=== PATIENT | male | born 1990 | race Hispanic/Latino ===

== ENCOUNTER 2024-06-25 10:35 | Observation (INO) | payer OTHER ==
[~2024-06-25] VITALS: Ht 167.6 cm; Wt 101.2 kg
[2024-06-25 11:00] LABS: BASOPHILS # (AUTO) 0.05 K/uL (0.00-0.20); BASOPHILS % (AUTO) 0.6 % (0.0-5.0); EOSINOPHILS # (AUTO) 0.16 K/uL (0.00-0.70); EOSINOPHILS % (AUTO) 2.1 % (0.0-8.0); HEMATOCRIT 48.1 % (42-54); IMMATURE GRANULOCYTE ABSOLUTE 0.03 K/uL (0-1); LYMPHOCYTES % (AUTO) 26.1 % (21.0-51.0); MEAN CORPUSCULAR HEMOGLOBIN 27.7 pg (27.0-33.0); MEAN CORPUSCULAR HGB CONC 32.6 g/dL (32.0-36.0); MEAN CORPUSCULAR VOLUME 84.8 fL (79-99); MONOCYTES # (AUTO) 0.5 K/uL (0.1-1.0); MONOCYTES % (AUTO) 6.9 % (3.0-13.0); NEUTROPHILS # (AUTO) 4.9 K/uL (1.8-7.7); NEUTROPHILS % (AUTO) 63.9 % (40.0-77.0); PLATELET COUNT (AUTO) 233 K/uL (130-400); RED BLOOD CELL COUNT(AUTO) 5.67 MIL/uL (4.50-6.20); RED CELL DISTRIBUTION WIDTH 12.9 % (11.0-15.5); WHITE BLOOD COUNT (AUTO) 7.7 K/uL (4.8-10.8)
--- NOTE | 2024-06-25 11:03 | ERN ---
General Chief Complaint: Syncope Stated Complaint: SYNCOPE Time Seen by MD: 10:36 Time Seen by Midlevel: 10:36 Source: patient History of Present Illness Initial Comments Patient is a 33-year-old male with a past medical history of a TBI diagnosed back in 2010 presenting via EMS for evaluation following a syncopal episode. Patient states that a proximally two in the morning he was walking to his restroom when he became dizzy in the next thing he remembers was waking up on the floor. He is unsure how long he was on the floor for but states that when he entered the restroom it was approximately two in the morning and when he left it was three in the morning. [facility] he report to the [facility] for further evaluation. On arrival he does report a headache that is rated 5/10 along with heaviness in his eyes. He specifically denies any vision changes, nausea, vomiting, chest pain, shortness for breath, or any other symptoms at this time. He states the only medications he was supposed to be taking his fluoxetine but he last took it last week. Patient states he does not take that medication very consistently. Allergies: Coded Allergies: No Known Drug Allergies (Unverified Allergy, Unknown, 06/25/24) Past Medical History Past Medical History: Anxiety, Other Medical History Other: TRAUMATIC BRAIN INJURY, INSOMNIA, ALLERGIC RHINITIS, HERNIA, PTSD Past Surgical History: Appendectomy, Other Surgical History Other: HERNIA ROS Dictation CONSTITUTIONAL: Negative except for HPI HEAD/FACE: Negative except for HPI EENT: Negative except for HPI RESPIRATORY: Negative except for HPI GASTROINTESTINAL/ABDOMINAL: Negative except for HPI GENITOURINARY: Negative except for HPI MUSCULOSKELETAL: Negative except for HPI INTEGUMENTARY: Negative except for HPI NEUROLOGICAL/PSYCH: Negative except for HPI HEMATOLOGIC/LYMPHATIC: Negative except for HPI All Systems Negative, Except as noted above. 13 point review of systems assessed and all negative except for above. Physical Exam Physical Exam Dictation Vital Signs reviewed General Appearance: Alert, oriented x 3, no acute distress, well developed, nourished. Head and Face: non-traumatic. Eyes: PERRL, pink conjunctivas, eyelid no trauma, anterior chamber with arcus senilis. Ears: Pinnas intact and no signs of trauma or erythema ear canals clear and no discharge TM no erythema Nose: No discharge, no bleeding. Oropharynx: Mouth normal, tongue pink, pharynx clear,no erythema, tonsils no exudates, no abscesses noted, mucous membrane moist Neck: Supple, non-tender, no thyromegaly, no masses, no JVD, no bruits Breast:Deferred Chest:No tenderness, no crepitus, no paradoxical movement, no retractions Lungs:Clear, well-ventilated, symmetric, no rales, no wheezing, no rhonchi, no stridor, good breath sounds bilaterally Heart: Regular rate, regular rhythm, no murmur, no gallops Vascular: no peripheral edema, Abdomen: Soft, positive bowel sounds, nondistended, no guarding, nontender, no rebound, no masses no hepatomegaly, no splenomegaly, no Mar's sign, no hernias. Rectal: Deferred Genital: Deferred Neurological: Normal speech, motor function intact, sensory function intact Musculoskeletal: Neck nontender, full range of motion, back nontender, full range of motion, Extremities: nontender, full range of motion Skin: Color pink, dry, no turgor, no rash, no lacerations, no abrasions, no contusions. Lymphatic: Deferred Results Laboratory and Microbiology Lab and Micro Result Laboratory Tests Test 06/25/24 10:54 06/25/24 11:00 White Blood Count 7.7 K/uL (4.8-10.8) Red Blood Count 5.67 MIL/uL (4.50-6.20) Hemoglobin 15.7 g/dL (14.0-18.0) Hematocrit 48.1 % (42-54) Mean Corpuscular Volume 84.8 fL (79-99) Mean Corpuscular Hemoglobin 27.7 pg (27.0-33.0) Mean Corpuscular Hemoglobin Concent 32.6 g/dL (32.0-36.0) Red Cell Distribution Width 12.9 % (11.0-15.5) Platelet Count 233 K/uL (130-400) Mean Platelet Volume 10.1 fL (7.5-10.5) Immature Granulocyte % (Auto) 0.4 % (0-1) Neutrophils (%) (Auto) 63.9 % (40.0-77.0) Lymphocytes (%) (Auto) 26.1 % (21.0-51.0) Monocytes (%) (Auto) 6.9 % (3.0-13.0) Eosinophils (%) (Auto) 2.1 % (0.0-8.0) Basophils (%) (Auto) 0.6 % (0.0-5.0) Neutrophils # (Auto) 4.9 K/uL (1.8-7.7) Lymphocytes # (Auto) 2.0 K/uL (1.0-4.8) Monocytes # (Auto) 0.5 K/uL (0.1-1.0) Eosinophils # (Auto) 0.16 K/uL (0.00-0.70) Basophils # (Auto) 0.05 K/uL (0.00-0.20) Absolute Immature Granulocyte (auto 0.03 K/uL (0-1) Nucleated Red Blood Cells 0.0 % (0.0-0.19) Sodium Level 140 mmol/L (136-145) Potassium Level 4.3 mmol/L (3.5-5.1) Chloride Level 105 mmol/L (101-111) Carbon Dioxide Level 29 mmol/L (21-32) Blood Urea Nitrogen 13 mg/dL (7-18) Creatinine 1.1 mg/dL (0.5-1.3) Glomerular Filtration Rate Calc 90 mL/min (>90) Random Glucose 103 mg/dL (70-105) Total Calcium 9.3 mg/dL (8.5-10.1) Total Creatine Kinase 193 U/L (21-232) Troponin I High Sensitivity < 4 ng/L (4-75) L Urine Color LIGHT-YELLOW (YELLOW) Urine Appearance CLEAR (CLEAR) Urine pH 5.5 (5.0-8.0) Urine Specific [place] 1.024 (1.001-1.031) Urine Protein NEGATIVE mg/dL (NEGATIVE) Urine Glucose (UA) NEGATIVE mg/dL (NEGATIVE) Urine Ketones NEGATIVE mg/dL (NEGATIVE) Urine Occult Blood NEGATIVE (NEGATIVE) Urine Nitrate NEGATIVE (NEGATIVE) Urine Bilirubin NEGATIVE mg/dL (NEGATIVE) Urine Urobilinogen 0.2 mg/dL (0.2-1.0) Urine Leukocyte Esterase NEGATIVE Dianelys/uL Urine Opiates Screen NEGATIVE (NEGATIVE) Urine Barbiturates Screen NEGATIVE (NEGATIVE) Urine Phencyclidine Screen NEGATIVE (NEGATIVE) Urine Amphetamines Screen NEGATIVE (NEGATIVE) Urine Benzodiazepines Screen NEGATIVE (NEGATIVE) Urine Cocaine Screen NEGATIVE (NEGATIVE) Urine Marijuana (THC) Screen NEGATIVE (NEGATIVE) Labs Reviewed?: Yes MDM MDM: Patient is a 33-year-old male with a past medical history of a TBI diagnosed back in 2010 presenting via EMS for evaluation following a syncopal episode. Patient states that a proximally two in the morning he was walking to his restroom when he became dizzy in the next thing he remembers was waking up on the floor. He is unsure how long he was on the floor for but states that when he entered the restroom it was approximately two in the morning and when he left it was three in the morning. He reported to the [facility] office today who recommended he report to the ER for further evaluation. On arrival he does report a headache that is rated 5/10 along with heaviness in his eyes. He specifically denies any vision changes, nausea, vomiting, chest pain, shortness for breath, or any other symptoms at this time. He states the only medications he was supposed to be taking his fluoxetine but he last took it last week. Patient states he does not take that medication very consistently. On physical examination patient is alert and oriented x4. He has a GCS of 15. He was reporting a headache that is rated 5/10. His CBC and chemistries are unremarkable. His urinalysis not show any evidence of infection. His urine drug screen is negative. His CT scan of the head reveals diffuse prominence of the lateral ventricle. This may be a nonspecific finding and may be congenital however this could represent early hydrocephalus. Given his episode of dizziness earlier today patient was admitted to the hospital for an MRI of the brain. Case was discussed with the hospitalist on-call who agrees to admit the patient. Dr Nichols, neurologist, was consulted in the ED. He recommends getting an MRI first and then the hospitalist can re-consult if there are any abno rmalities. Differential diagnosis: Intracranial bleed, electrolyte abnormality, dehydration Rationale: Tests considered and ordered secondary to shared decision making include: Previous outside records reviewed: Old ER visits. Risk of complication and/or morbidity or mortality of patient management: None Medications-Per medication reconciliation Need for hospitalization: Patient does meet criteria for hospitalization. Need for emergency major/minor surgery: No There are no social concerns with this patient. Prescription drug management Prescriptions will include symptomatic care Patient's prior external medical records from other ER visits were reviewed by me as indicated. Prior testing and results from previous visits were reviewed. Prior tests were taken into account with medical decision making and resource utilization, independent historian/historians were used to obtain complete medical history. I independently interpreted the test that were performed, results were reviewed by me and considered findings on radiology if ordered. Medical management and examination interpretation discussions were had by me with other qualified healthcare professionals as indicated for the patient's care. ED Course Orders Procedure Category Date Status Time Cbc With Differential LAB 06/25/24 Complete 10:39 Basic Metabolic Panel LAB 06/25/24 Complete 10:39 Creatine Kinase, Total LAB 06/25/24 Complete 10:39 Urinalysis Profile LAB 06/25/24 Complete 10:39 Drug Screen Urine LAB 06/25/24 Complete 10:39 Troponin I High LAB 06/25/24 Complete Sensitivity 10:39 Ct Head/Brain W/O CT 06/25/24 Resulted Contrast 10:39 Neurology Consult CONPHYSVC 06/25/24 Transmitted 13:20 Mr Brain Wo Con MRI 06/25/24 Resulted 13:20 Edm Admit Bridge Order ADM 06/25/24 Transmitted 13:20 Alcohol, Blood LAB 06/25/24 Complete 13:36 Orthostatic Vital CPOE 06/25/24 Transmitted Signs 13:36 Echo 2-D Complete ECHO 06/25/24 Logged 13:36 Us Carotid Duplex US 06/25/24 Resulted 13:36 Initiate JULIANNA 06/25/24 In Process Hyperglycemia Protoco 14:42 Insulin Regular, PHA 06/25/24 In Process Human 3ml (Humulin R 16:30 Initiate Hypoglycemia JULIANNA 06/25/24 In Process Protocol 14:42 Dextrose 50%-Water PHA 06/25/24 In Process (D50w) 15:00 Glucagon 1mg Kit PHA 06/25/24 In Process (Glucagon 1mg Kit) 15:00 Initiate Hypokalemia CPOE 06/25/24 Transmitted Po Half 14:42 Potassium Chloride PHA 06/25/24 In Process 10meq/100ml ([place] 15:00 Potassium Chl 10% PHA 06/25/24 In Process Elixir 20meq (Kcl 10% 15:00 Potassium Chloride PHA 06/25/24 In Process 20meq Er (K-Dur/Klor- 15:00 Notify Physician If CPOE 06/25/24 Transmitted There Is 14:42 Notify Md On The Next CPOE 06/25/24 Transmitted 14:42 Notify Md On The CPOE 06/25/24 Transmitted Next(Cont.) 14:42 Magnesium 2gm Premix PHA 06/25/24 In Process 50ml (Magnesium 2gm 15:00 Cbc With Differential LAB 06/26/24 Complete 04:00 B-Type Natriuretic LAB 06/26/24 In Process Peptide 04:00 Ammonia LAB 06/26/24 In Process 04:00 Hemoglobin A1c LAB 06/26/24 Complete 04:00 Lactic Acid LAB 06/26/24 In Process 04:00 Keppra LAB 06/26/24 In Process (Levetiracetam) Level 04:00 Procalcitonin LAB 06/26/24 In Process 04:00 Vital Signs(Adult CPOE 06/25/24 Transmitted Hospitalist) 14:42 Daily Weights CPOE 06/25/24 Transmitted 14:42 I&O Q Shift CPOE 06/25/24 Transmitted 14:42 Fever: Blood Cx X 2 CPOE 06/25/24 Transmitted 14:42 Diphenhydramine Hcl PHA 06/25/24 In Process (Benadryl Inj) 15:00 Acetaminophen 325 Tab PHA 06/25/24 In Process (Tylenol 325mg Tab 15:00 Acetaminophen 325 Tab PHA 06/25/24 Complete (Tylenol 325mg Tab 15:00 Ondansetron 4mg Inj PHA 06/25/24 In Process (Zofran 4mg Inj) 15:00 Zolpidem Tartrate 5 PHA 06/25/24 In Process Mg Tab (Ambien) 15:00 Mag/Alum/Simeth 30ml PHA 06/25/24 In Process (Maalox Plus 30ml) 15:00 Lactulose 20 Gm/30 Ml PHA 06/25/24 In Process Udcup (Constulose 15:00 Nitroglycerin 0.4mg PHA 06/25/24 In Process Sl Tab (Nitrostat) 15:00 Guaifenesin-Dm PHA 06/25/24 In Process 200/20mg 10ml 15:00 Famotidine 20mg Vial PHA 06/25/24 Complete (Pepcid 20mg Vial) 15:00 Nurse To Enter Home CPOE 06/25/24 Transmitted Medication 14:42 Admit Orders ADM 06/25/24 Transmitted 14:42 Activity: Ad Onelia CPOE 06/25/24 Transmitted 14:42 Heparin 5,000 Unit PHA 06/25/24 In Process Vial (Heparin 5,000 U 21:00 Acetaminophen 325 Tab PHA 06/25/24 In Process (Tylenol 325mg Tab 15:00 Ketorolac PHA 06/25/24 In Process Tromethamine 15mg/Ml 15:00 Pt Eval Request PT 06/25/24 Transmitted 14:42 Hydralazine 20mg Inj PHA 06/25/24 In Process (Apresoline 20mg In 15:00 Famotidine 20mg Vial PHA 06/25/24 In Process (Pepcid 20mg Vial) 21:00 Vital Signs Date Time Temp Pulse Resp B/P (MAP) Pulse Ox O2 Delivery O2 Flow Rate FiO2 06/25/24 10:37 98.4 68 16 130/92 99 Room Air* 0 21 06/25/24 10:37 98.4 68 16 130/92 99 Room Air [place] [address] [id number] IMAGING REPORT Signed PATIENT: WANG JOSE MR#: [id number] : 1990 SEX: M AGE: 33 LOCATION: [facility] ORDER 1040 STATUS: REG ER REPORT#: [id number] SERVICE 1039 REASON: syncope/head injury ORDERING PHYSICIAN: BRYN AC PROCEDURE: HEAD WO - CT HEAD/BRAIN W/O CONTRAST Exam: NONCONTRAST CT BRAIN REASON: syncope/head injury. COMPARISON: None. TECHNIQUE: Images are obtained from vertex to the skull base. The exam was performed without IV contrast. FINDINGS: There is normal appearing brain parenchyma. There are no focal mass lesions. There is is no evidence of intracranial hemorrhage or acute stroke. Ventricles appear diffusely prominent. There is loss of the frontal lobe angles on the coronal view. Third and fourth ventricles appear more normal in size. There is no evidence of transependymal resumption. Sulci and basilar cisterns appear unremarkable. Posterior fossa and brainstem structures are unremarkable. Paranasal sinuses and remaining extracranial soft tissues appear normal as well. IMPRESSION: 1. Diffuse prominence of the lateral ventricles, nonspecific finding, this may be congenital but could also represent to early hydrocephalus 2. Otherwise unremarkable exam, no intracranial hemorrhage, no focal parenchymal lesion identified. CT was performed with one or more following dose reduction techniques: automated exposure control, adjustment of the mA and kv according to patient's size, or use of a iterative reconstruction technique. DICTATED BY: FRANK ABDUL MD DATE: 06/25/241217 ELECTRONICALLY SIGNED BY: FRANK ABDUL MD DATE: 06/25/24 1222 DX & DISP Disposition: Inpatient Decision to Admit Date: Jun 25, 2024 Decision to Admit Time: 13:23 Departure Impression: Primary Impression: Abnormal CT of brain Additional Impression: Syncope Condition: Stable I have reviewed the case, and I agree with, Diagnosis and Plan I performed the substantive portion of the visit. I have reviewed and personally made and approve the management plan that is documented in the note by myself or the CLAY. I acknowledge for responsibility for the patient's management plan. BRYN AC Jun 25, 2024 11:03 RENETTA MARIN DO Jun 26, 2024 07:22
[2024-06-25 11:09] LABS: CREATININE 1.1 mg/dL (0.5-1.3); POTASSIUM 4.3 mmol/L (3.5-5.1)
[2024-06-25 11:37] LABS: AMPHET/METH SCREEN,URINE NEGATIVE (NEGATIVE); BARBITURATE SCREEN, URINE NEGATIVE (NEGATIVE); BENZODIAZEPINES SCREEN,URINE NEGATIVE (NEGATIVE); CANNABINOID SCREEN,URINE NEGATIVE (NEGATIVE); COCAINE SCREEN,URINE NEGATIVE (NEGATIVE); OPIATE SCREEN,URINE NEGATIVE (NEGATIVE); PHENCYCLIDINE SCREEN,URINE NEGATIVE (NEGATIVE)
[2024-06-25 12:04] LABS: APPEARANCE,URINE CLEAR (CLEAR); BILIRUBIN,URINE NEGATIVE (NEGATIVE); COLOR,URINE LIGHT-YELLOW (YELLOW); GLUCOSE, URINE (UA) NEGATIVE (NEGATIVE); KETONES,URINE NEGATIVE (NEGATIVE); LEUKOCYTE ESTERASE ,URINE NEGATIVE Leu/uL (NEGATIVE); NITRATE,URINE NEGATIVE (NEGATIVE); OCCULT BLOOD,URINE NEGATIVE (NEGATIVE); PH,URINE 5.5 (5.0-8.0); PROTEIN,URINE NEGATIVE (NEGATIVE); UROBILINOGEN,URINE 0.2 mg/dL (0.2-1.0)
[2024-06-25 12:18] LABS: ADD UA MICROSCOPIC NO
--- NOTE | 2024-06-25 12:22 | HMCIMG ---
Exam: NONCONTRAST CT BRAIN REASON: syncope/head injury. COMPARISON: None. TECHNIQUE: Images are obtained from vertex to the skull base. The exam was performed without IV contrast. FINDINGS: There is normal appearing brain parenchyma. There are no focal mass lesions. There is is no evidence of intracranial hemorrhage or acute stroke. Ventricles appear diffusely prominent. There is loss of the frontal lobe angles on the coronal view. Third and fourth ventricles appear more normal in size. There is no evidence of transependymal resumption. Sulci and basilar cisterns appear unremarkable. Posterior fossa and brainstem structures are unremarkable. Paranasal sinuses and remaining extracranial soft tissues appear normal as well. IMPRESSION: 1. Diffuse prominence of the lateral ventricles, nonspecific finding, this may be congenital but could also represent to early hydrocephalus 2. Otherwise unremarkable exam, no intracranial hemorrhage, no focal parenchymal lesion identified. CT was performed with one or more following dose reduction techniques: automated exposure control, adjustment of the mA and kv according to patient's size, or use of a iterative reconstruction technique.
--- NOTE | 2024-06-25 13:40 | NUR ---
HOSPITALIST BEDSIDE ASSESSING PT
--- NOTE | 2024-06-25 14:39 | NUR ---
pt still in mri
[2024-06-25] MEDS ORDERED: MAGNESIUM 2GM PREMIX 50ML 50 ML IV PRN (15:00)
[2024-06-25] MEDS ORDERED: GLUCAGON 1MG KIT 1 MG ML IM PRN (15:00)
[2024-06-25] MEDS ORDERED: PoTASSium chloRIDE 20MEQ ER 20 MEQ ERTAB PO PRN (15:00)
[2024-06-25] MEDS ORDERED: FAMOTIDINE 20MG VIAL IV PRN (15:00)
[2024-06-25] MEDS ORDERED: acetaMINOPHEN 325 MG TAB PO PRN ×2 (15:00)
[2024-06-25] MEDS ORDERED: MAG/ALUM/SIMETH 30 ML UDCUP PO PRN (15:00)
[2024-06-25] MEDS ORDERED: LACTULOSE 20 GM/30 ML UDCUP PO PRN (15:00)
[2024-06-25] MEDS ORDERED: guaiFENesin-DM 200/20MG 10ML PO PRN (15:00)
[2024-06-25] MEDS ORDERED: hydrALAZine 20MG/ML VIAL IV PRN (15:00)
[2024-06-25] MEDS ORDERED: NITROGLYCERIN 0.4 MG SL TAB SL PRN (15:00)
[2024-06-25] MEDS ORDERED: DiphenhydrAMINE HCL 50 MG/ML VIAL IV PRN (15:00)
[2024-06-25] MEDS ORDERED: ondanSETRON 4MG INJ IV PRN (15:00)
[2024-06-25] MEDS ORDERED: DEXTROSE 50%-WATER 50 ML DISP.SYRIN IV PRN (15:00)
[2024-06-25] MEDS ORDERED: PoTASSium chloRIDE 10MEQ/100ML 100 ML IV PRN (15:00)
[2024-06-25] MEDS ORDERED: PoTASSium chl 10% ELIXIR 20MEQ 20 MEQ/15 ML UDCUP PO PRN (15:00)
--- NOTE | 2024-06-25 15:02 | HP ---
[facility] HISTORY AND PHYSICAL Date of Service: Jun 25, 2024 Time of Service: 14:47 PCP: NE Admitting: Dr Bronson, Allergies: No Allergy Information Available, No Known Drug Allergies HISTORY OF PRESENT ILLNESS: [ Patient is 33 years old male with a past medical traumatic brain injury 2010, insomnia, allergic rhinitis, anxiety, PTSD, depression, umbilical hernia repair, appendectomy, came to emergency department we will assist complain of syncopal episode patient stated that aproximally two in the morning he was walking to his restroom when he became dizzy in the next thing he remembers was waking up on the floor. He is unsure how long he was on the floor for but states that when he entered the restroom it was approximately two in the morning and when he left it was little after three in am. He reported to the [facility] is office today who recommended he report to the ER for further evaluation. On arrival he does report a headache that is rated 5/10 along with heaviness in his eyes. He specifically denies any vision changes, nausea, vomiting, chest pain, shortness for breath, or any other symptoms at this time. He states the only medications he was supposed to be taking his fluoxetine but he last took it last week. Patient states he does not take that medication very consistently. Most recent vital signs temperature 98.4 pulse 68 respiration 16 blood pressure 130/92 patient is on room air satting 99%. WBC 7.7 hemoglobin 15.7 hematocrit 48.1 platelets 233 UA negative toxicology negative, sodium 140 potassium 4.3 CO2 29 BUN 13 creatinine 1.1 GFR 90 calcium 9.3 troponin negative x1. 06/25/2024 CT head brain showed diffuse prominence of the lateral ventricles nonspecific findings may be congenital but could also represent to early hydrocephalus. We will order MRI brain, 2D echo, orthostatic five, Doppler and we will also consult neurologist for further evaluation/recommendations. Patient denies any shortness of breath, chest pain, nausea, vomiting or any other discomfort at this moment other than mild headache. at the bedside. We will continue to monitor patient in the meantime. A.m. labs.] REVIEW OF SYSTEMS CONSTITUTIONAL: Denies fevers, chills, or night sweats. No unintentional weight loss reported. NEUROLOGICAL: Denies amaurosis fugax, motor weakness, sensory deficit, vertigo/spinning sensation, gait abnormalities, or tremors. Complains of headaches ENT: No hearing loss, otalgia, otorrhea, rhinitis, rhinorrhea, hoarseness, or sore throat. CARDIOVASCULAR: Denies any exertional angina, dyspnea on exertion, orthopnea, paroxysmal nocturnal dyspnea, palpitations, life-threatening arrhythmias, claudication. PULMONARY: Denies any shortness of breath, cough, phlegm/sputum, hemoptysis, pleuritic chest pain. SLEEP: Denies morning headaches, daytime somnolence or napping. Denies difficulty falling asleep, staying asleep, waking from sleep. Denies knowledge of snoring. GASTROINTESTINAL: Denies any type of dysphagia to either liquids or solids. Denies nausea, vomiting, pyrosis, early satiety, abdominal pain, diarrhea, constipation, or changes in stool consistency or caliber. Denies coffee-ground emesis, hematemesis, hematochezia, or melanotic stools. GENITOURINARY: Denies frequency, urgency, nocturia, hematuria or incontinence (Storage/Irritative symptoms.) Low urinary stream, straining to void, urinary intermittency or hesitancy, splitting of the voiding stream, terminal dribbling. ENDOCRINOLOGIC: Denies polyuria, polydipsia, polyphagia or heat/cold intolerances. HEMATOLOGIC: Denies thrombophilia/previous clots, or coagulopathy/bleeding disorders. ONCOLOGIC: Denies personal history of malignancy. DERMATOLOGIC: Denies rashes or pruritus. PSYCHIATRIC: Denies any suicidal or homicidal ideation. Denies hallucinations. PAST MEDICAL HISTORY: [ , Otic brain injury 2011, anxiety, insomnia, PTSD, depression, allergic rhinitis ] PAST SURGICAL HISTORY: [ Umbilical hernia repair about a year ago ,appendectomy] PAST SOCIAL HISTORY: [ Patient's smokes occasionally cigar, patient for alcohol once a month about 1 to 2 beers at a time, patient denies any drug illicit ] FAMILY HISTORY: [ lives at home with ] Coded Allergies: No Known Drug Allergies (Unverified Allergy, Unknown, 06/25/24) PHYSICAL EXAM GENERAL APPEARANCE: The patient is awake, alert, and oriented, in no acute cardiopulmonary distress. NEUROLOGICAL: Cranial nerves II-XII grossly intact. Motor is 5/5 in bilateral upper and lower extremities proximal to distal. No sensory deficits. HEENT: Face is symmetric. Pupils are equal and reactive. Extraocular movements are intact. NECK: Supple. No JVD. No thyromegaly. No submental, submandibular, pre- /postauricular, occipital or supraclavicular lymphadenopathy. CHEST: Normal chest expansion. No Telemetry. LUNGS: Absence of any rales, rhonchi or any wheezing. CARDIOVASCULAR: Regular. S1 and S2 normal. No appreciable rubs, murmurs or gallops. ABDOMEN: Soft, nontender, and nondistended. There is no rebound, voluntary guarding, or rigidity. : Deferred. No Hammer. EXTREMITIES: Non-edematous and not cyanotic. No clubbing. Good capillary refill. SKIN: No skin breakdown. Vital Sign (Last 24 Hours) 06/25/24 10:37 Temp 98.4 Pulse 68 Resp 16 B/P (MAP) 130/92 Pulse Ox 99 O2 Delivery Room Air* O2 Flow Rate 0 FiO2 21 LABS: Laboratory: Test 06/25/24 11:00 06/25/24 10:54 Range/Units Urine Color LIGHT-YELLOW YELLOW Urine Appearance CLEAR CLEAR Urine pH 5.5 5.0-8.0 Urine Specific [place] 1.024 1.001-1.031 Urine Protein NEGATIVE NEGATIVE mg/dL Urine Glucose (UA) NEGATIVE NEGATIVE mg/dL Urine Ketones NEGATIVE NEGATIVE mg/dL Urine Occult Blood NEGATIVE NEGATIVE Urine Nitrate NEGATIVE NEGATIVE Urine Bilirubin NEGATIVE NEGATIVE mg/dL Urine Urobilinogen 0.2 0.2-1.0 mg/dL Urine Leukocyte Esterase NEGATIVE NEGATIVE Dianelys/uL Urine Opiates Screen NEGATIVE NEGATIVE Urine Barbiturates Screen NEGATIVE NEGATIVE Urine Phencyclidine Screen NEGATIVE NEGATIVE Urine Amphetamines Screen NEGATIVE NEGATIVE Urine Benzodiazepines Screen NEGATIVE NEGATIVE Urine Cocaine Screen NEGATIVE NEGATIVE Urine Marijuana (THC) Screen NEGATIVE NEGATIVE White Blood Count 7.7 4.8-10.8 K/uL Red Blood Count 5.67 4.50-6.20 MIL/uL Hemoglobin 15.7 14.0-18.0 g/dL Hematocrit 48.1 42-54 % Mean Corpuscular Volume 84.8 79-99 fL Mean Corpuscular Hemoglobin 27.7 27.0-33.0 pg Mean Corpuscular Hemoglobin Concent 32.6 32.0-36.0 g/dL Red Cell Distribution Width 12.9 11.0-15.5 % Platelet Count 233 130-400 K/uL Mean Platelet Volume 10.1 7.5-10.5 fL Immature Granulocyte % (Auto) 0.4 0-1 % Neutrophils (%) (Auto) 63.9 40.0-77.0 % Lymphocytes (%) (Auto) 26.1 21.0-51.0 % Monocytes (%) (Auto) 6.9 3.0-13.0 % Eosinophils (%) (Auto) 2.1 0.0-8.0 % Basophils (%) (Auto) 0.6 0.0-5.0 % Neutrophils # (Auto) 4.9 1.8-7.7 K/uL Lymphocytes # (Auto) 2.0 1.0-4.8 K/uL Monocytes # (Auto) 0.5 0.1-1.0 K/uL Eosinophils # (Auto) 0.16 0.00-0.70 K/uL Basophils # (Auto) 0.05 0.00-0.20 K/uL Absolute Immature Granulocyte (auto 0.03 0-1 K/uL Nucleated Red Blood Cells 0.0 0.0-0.19 % Sodium Level 140 136-145 mmol/L Potassium Level 4.3 3.5-5.1 mmol/L Chloride Level 105 101-111 mmol/L Carbon Dioxide Level 29 21-32 mmol/L Blood Urea Nitrogen 13 7-18 mg/dL Creatinine 1.1 0.5-1.3 mg/dL Glomerular Filtration Rate Calc 90 >90 mL/min Random Glucose 103 70-105 mg/dL Total Calcium 9.3 8.5-10.1 mg/dL Total Creatine Kinase 193 21-232 U/L Troponin I High Sensitivity < 4 L 4-75 ng/L DIAGNOSTICS / RADIOLOGY: [ ] ASSESSMENT: [ Hydrocephalus per CT head brain 06/25/2024 POA Loss of consciousness s/p dizziness POA Fall, hit the head POA Insomnia PTSD Anxiety Depression History of Traumatic brain injury 2010 History of allergic rhinitis POA History of umbilical hernia repair 2022 History of appendectomy Occasional cigar smoker Vaginal alcohol illicit once per month 1 to 2 beers at a time PLAN: [ Admit to: Medical-surgical tele Consults: Neurologist Antibiotics: None Tests: MRI brain with and without contrast, orthostatic vital signs, 2D echo, carotid Doppler NEURO: Minimize central acting medications as possible. Fall Precautions. Well lighted room through the day and minimize interruptions through the night to prevent acute delirium. PULMONARY: Supplemental 02 as needed BiPAP as necessary, for respiratory distress Titrate Fio2 to keep Spo2 > or = 90% DuoNebs and CPT as needed IS hourly while awake for pulmonary hygiene Out of bed to chair as tolerated VAP Bundle Maintain aspiration precautions at all times CARDIOVASCULAR: Follow hemodynamics. Vital signs per facility protocol GI & NUTRITION: Continue nutritional support Aspirations precautions Prokinetic agents and laxatives as needed KIDNEYS & ELECTROLYTES: Strict monitoring of intake and output Daily weights Avoid nephrotoxic agents Monitor electrolytes and replace as needed Goal urine output of 30mL/hr or 0.5mL/kg/hr Medications to be dosed according to renal function. Avoid contrast if possible ENDOCRINE: Maintain blood glucose between 100-180 at all times. Insulin sliding scale for blood glucose management Hypoglycemia and hyperglycemia protocol in place INFECTIOUS DISEASE: Trend temperature, WBC and procalcitonin level Follow cultures, deescalate antibiotics as soon as possible. Panculture if new onset fever HEMATOLOGY & COAGULATION: Monitor H&H. Keep Hgb > 7 Transfuse 1 unit of PRBC for Hgb < 7 Transfuse 1 pack of platelets of platelets < 20, 000 Watch for any signs and symptoms of bleeding SKIN: Pressure ulcer prevention per facility protocol Specialty mattress as needed Treatment plan discussed with patient and family at the bedside Medications to be reconciled once obtained by patient and/or family and available to be reconciled in computer p.r.n. medication for pain nausea and vomiting Questions were answered We will continue to monitor the patient closely Concessionist for disposition Rehab: PT/OT GI: PPI DVT: SCD's Code Status: Full Resuscitation Disposition: TBD Prognosis: Guarded] ADVANCED CARE PLANNING 1. Which of the following were discussed? Hospice Care - Yes / No Therapeutic options - Yes / No Advance Directives - Yes / No Other discussions - 2. Discussed with who? Patient and the at the bedside 3. Voluntary nature of this service was explained to the patient? Yes / No 4. Amount of time spent - __ more than. 35 minutes 5. Reviewed by Physician? (if this service was performed by NPP) Yes / No ATTESTATION BY PHYSICIAN I have seen and examined the patient. I reviewed the documentation, medical decision making, and treatment plan as noted by the mid-level provider above. I agree with the findings and plan of care. AKILAH BRONSON MD, [facility] Jun 25, 2024 15:02
[2024-06-25] MEDS: ketOROlac 15MG/ML VIAL (15MG/ML) IV PRN (15:09)
--- NOTE | 2024-06-25 15:10 | NUR ---
pt has no past medical hx does not take any daily meds, no meds to reconcile
--- NOTE | 2024-06-25 15:33 | HMCIMG ---
Exam: Noncontrast MRI brain REASON: Abnormal CT COMPARISON: There are no prior MRI scans available for comparison. TECHNIQUE: Routine cerebral imaging protocol was performed. Exam was performed without IV contrast. CONTRAST: None FINDINGS: There is normal appearing brain parenchyma. There are no focal mass lesions. There are no areas of abnormal signal intensity. Ventricles appear diffusely generous. The sulci appear more generous on this exam as well, in proportion to the generous ventricles. There is no evidence of transependymal resorption or pressure effect. These findings may represent normal variation, or may represent a mild component of diffuse parenchymal loss. Posterior fossa and brainstem structures appear unremarkable. There is no evidence of intracranial hemorrhage. Diffusion-weighted images are negative for an acute ischemic process. There are no abnormal fluid collections. Extracranial soft tissues appear normal as well. IMPRESSION: 1. Generous ventricles and sulci, there is no evidence of transependymal collection to suggest hydrocephalus, please see above discussion. 2. Otherwise unremarkable noncontrast MRI brain.
--- NOTE | 2024-06-25 15:34 | HMCIMG ---
US CAROTID DUPLEX REASON: DIZZY/LOC TECHNIQUE: Exam was performed using spectral analysis and color flow imaging. FINDINGS: Color flow Doppler ultrasound shows normal-appearing bifurcations. There is no anatomic evidence of significant focal narrowing. Flow velocities and velocity ratios appear normal throughout. There is antegrade flow in both vertebral arteries. RIGHT CAROTID: CCA: 81 cm/sec ICA: 85 cm/sec Ratio: ICA/CCA: 1 ECA: 74 cm/sec Vertebral artery: 44 cm/sec LEFT CAROTID: CCA: 140 cm/sec ICA: 85 cm/sec Ratio: ICA/CCA: 0.6 ECA: 79 cm/sec Vertebral artery: 61 cm/sec IMPRESSION: Normal bilateral carotid Doppler ultrasound.
[2024-06-25] MEDS: INSULIN humuLIN R 100 UNIT/ML 3ML SQ SCH (19:00)
[2024-06-25] MEDS: acetaMINOPHEN 325 MG TAB PO PRN (19:21)
[2024-06-25] MEDS: FAMOTIDINE 20MG VIAL IV SCH (20:21)
[2024-06-25] MEDS: HEParin 5,000 UNIT VIAL SQ SCH (20:22)
[2024-06-25] MEDS: ZOLPidem TARTrate 5 MG TAB PO PRN (23:59)
--- NOTE | 2024-06-26 07:00 | NUR ---
REPORT RECIEVED FROM JOSR BERNAL
[2024-06-26 07:09] LABS: BASOPHILS # (AUTO) 0.04 K/uL (0.00-0.20); BASOPHILS % (AUTO) 0.5 % (0.0-5.0); EOSINOPHILS # (AUTO) 0.32 K/uL (0.00-0.70); EOSINOPHILS % (AUTO) 4.2 % (0.0-8.0); HEMATOCRIT 45.7 % (42-54); IMMATURE GRANULOCYTE ABSOLUTE 0.03 K/uL (0-1); LYMPHOCYTES # (AUTO) 2.3 K/uL (1.0-4.8); LYMPHOCYTES % (AUTO) 29.9 % (21.0-51.0); MEAN CORPUSCULAR HEMOGLOBIN 27.4 pg (27.0-33.0); MEAN CORPUSCULAR VOLUME 82.8 fL (79-99); MONOCYTES # (AUTO) 0.6 K/uL (0.1-1.0); MONOCYTES % (AUTO) 7.4 % (3.0-13.0); NEUTROPHILS # (AUTO) 4.4 K/uL (1.8-7.7); NEUTROPHILS % (AUTO) 57.6 % (40.0-77.0); PLATELET COUNT (AUTO) 233 K/uL (130-400); RED BLOOD CELL COUNT(AUTO) 5.52 MIL/uL (4.50-6.20); RED CELL DISTRIBUTION WIDTH 12.9 % (11.0-15.5); WHITE BLOOD COUNT (AUTO) 7.6 K/uL (4.8-10.8)
[2024-06-26 07:12] LABS: HEMOGLOBIN A1C 5.4 % (4.0-6.0)
[2024-06-26 07:29] LABS: ALBUMIN 3.4 g/dL (3.5-5.0); BILIRUBIN,DIRECT 0.1 mg/dL (0.0-0.3); BILIRUBIN,TOTAL 0.5 mg/dL (0.2-1.0); CREATININE 1.2 mg/dL (0.5-1.3); MAGNESIUM 1.9 mg/dL (1.80-2.40); POTASSIUM 4.3 mmol/L (3.5-5.1); TOTAL PROTEIN, SERUM 6.9 g/dL (6.0-8.3)
--- NOTE | 2024-06-26 07:45 | NUR ---
ASSESSMENT: PT FOUND IN SEMI FOWLERS. PT DENIES AND OR DOES NOT APPEAR TO BE IN ANY ACUTE DISTRESS AT THIS TIME. NEURO: PT A/O X 4. PT FOLLOWS BOTH SIMPLE AND COMPLEX COMMANDS. PUPILS ARE 3MM OU. GCS OF 14. PT DENIES ANY DIZZINESS AT THIS TIME. CARDIO/PULMONARY:PT DENIES ANY CP OR SOB AT THIS TIME. GI/: PT DENIES ANY BOWEL OR BLADDER ISSUES. HE IS ABLE TO AMBULATE TO BR TO USE TOILET MUSCULOSKELETAL/INTEGUMENTARY: PT DOES C/O SOME LATERAL NECK DISCOMFORT BUT NO DEFORMITIES NOTED. NO SKIN BREAKDOWN NOTED NOR VERBALIZED BY PT.
--- NOTE | 2024-06-26 07:45 | NUR ---
DR BRONSON WAS IN TO SEE THE PT AND WOULD D/C HIM ONCE DR GREENE HAS SEEN/CLEARED THE PT.
--- NOTE | 2024-06-26 08:59 | NUR ---
PTS SPOUSE JUST ARRIVED AND BROUGHT PT SOME FOOD.
--- NOTE | 2024-06-26 10:07 | NUR ---
2 D ECHO: TECH AT BEDSIDE PERFORMING EXAM
--- NOTE | 2024-06-26 11:57 | NUR ---
DCP: HOME Sw met with pt who is a [place] and gets services and care at local [facility]. Pt works at [employer] and remains active and independent. Pt uses no DME or in home care services. Lives with Marni Amaya [phone]. Denies dc needs will return home at dc Addendum: 06/26/24 at 1201 by LORENZO RAMSAY Amended: Links added.
--- NOTE | 2024-06-26 13:13 | NUR ---
ELISABETH WEST HAS ATTEMPTED TO GET IN TOUCH W/DR GREENE, BUT HAS HAD NO LUCK PER HER MESSAGES. PENDING HIS ASSESSMENT FOR PT TO BE DISCHARGED.
--- NOTE | 2024-06-26 13:43 | NUR ---
DR JC MAYO PER MARY KATE SAMUEL
--- NOTE | 2024-06-26 13:54 | NUR ---
DR GREENE JUST RETURNED CALL. AFTER A CONVERSATION ABOUT THE PT, HE STATED HE WOULD CALL AND SPEAK TO DR BRONSON HIMSELF.
--- NOTE | 2024-06-26 14:22 | DS ---
Discharge Summary Hospital Course Summary: DATE OF ADMISSION:[06/25/24] DATE OF DISCHARGE:[06/26/2024] DISPOSITION:[Home] CONDITION:[Medically stable] CONSULTANTS:[Neurologist] FOLLOW UP APPOINTMENTS:[PCP 2 to 3 days. Neurologist within 1 to 2 weeks] PROCEDURES:[None] IMAGING: report attached to summary MICROBIOLOGY: report attached to summary ACTIVITY:[Independent] HOME MEDICATIONS: see med recc NEW MEDICATIONS: See med rec [] EMERGENCY INSTRUCTIONS: The patient was instructed to present to the nearest Emergency departmentr or call 911 once their symptoms will return or worsen Sql Ssis Developer(s): Patient is 33 years old male with a past medical traumatic brain injury 2010, insomnia, allergic rhinitis, anxiety, PTSD, depression, umbilical hernia repair, appendectomy, came to emergency department we will assist complain of syncopal episode patient stated that aproximally two in the morning he was walking to his restroom when he became dizzy in the next thing he remembers was waking up on the floor. He is unsure how long he was on the floor for but states that when he entered the restroom it was approximately two in the morning and when he left it was little after three in am. [facility] who recommended he report to the ER for further evaluation. On arrival he does report a headache that is rated 5/10 along with heaviness in his eyes. He specifically denies any vision changes, nausea, vomiting, chest pain, shortness for breath, or any other symptoms at this time. He states the only medications he was supposed to be taking his fluoxetine but he last took it last week. Patient states he does not take that medication very consistently. Most recent vital signs temperature 98.4 pulse 68 respiration 16 blood pressure 130/92 patient is on room air satting 99%. WBC 7.7 hemoglobin 15.7 hematocrit 48.1 platelets 233 UA negative toxicology negative, sodium 140 potassium 4.3 CO2 29 BUN 13 creatinine 1.1 GFR 90 calcium 9.3 troponin negative x1. 06/25/2024 CT head brain showed diffuse prominence of the lateral ventricles nonspecific findings may be congenital but could also represent to early hydrocephalus. We will order MRI brain, 2D echo, orthostatic five, Doppler and we will also consult neurologist for further evaluation/recommendations. Patient denies any shortness of breath, chest pain, nausea, vomiting or any other discomfort at this moment other than mild headache. Throughout the hospitalization orthostatic vital signs were performed and they were negative. MRI brain without contrast was also performed and was negative as well. Patient was seen by neurologist and was cleared to be discharged from his point. We asked patient to follow up with PCP in 2 to 3 days and neurologist within 1 to 2 weeks. Patient denies any shortness of breath, chest pain, nausea, vomiting or any other discomfort. Procedure(s): REVIEW OF SYSTEMS CONSTITUTIONAL: Denies fevers, chills, or night sweats. No unintentional weight loss reported. NEUROLOGICAL: Denies amaurosis fugax, motor weakness, sensory deficit, vertigo/spinning sensation, gait abnormalities, or tremors. Complains of headaches ENT: No hearing loss, otalgia, otorrhea, rhinitis, rhinorrhea, hoarseness, or sore throat. CARDIOVASCULAR: Denies any exertional angina, dyspnea on exertion, orthopnea, paroxysmal nocturnal dyspnea, palpitations, life-threatening arrhythmias, claudication. PULMONARY: Denies any shortness of breath, cough, phlegm/sputum, hemoptysis, pleuritic chest pain. SLEEP: Denies morning headaches, daytime somnolence or napping. Denies dif ficulty falling asleep, staying asleep, waking from sleep. Denies knowledge of snoring. GASTROINTESTINAL: Denies any type of dysphagia to either liquids or solids. Denies nausea, vomiting, pyrosis, early satiety, abdominal pain, diarrhea, constipation, or changes in stool consistency or caliber. Denies coffee-ground emesis, hematemesis, hematochezia, or melanotic stools. GENITOURINARY: Denies frequency, urgency, nocturia, hematuria or incontinence (Storage/Irritative symptoms.) Low urinary stream, straining to void, urinary intermittency or hesitancy, splitting of the voiding stream, terminal dribbling. ENDOCRINOLOGIC: Denies polyuria, polydipsia, polyphagia or heat/cold i ntolerances. HEMATOLOGIC: Denies thrombophilia/previous clots, or coagulopathy/bleeding disorders. ONCOLOGIC: Denies personal history of malignancy. DERMATOLOGIC: Denies rashes or pruritus. PSYCHIATRIC: Denies any suicidal or homicidal ideation. Denies hallucinations. Assessment/Plan: ASSESSMENT: [ Hydrocephalus per CT head brain 06/25/2024 POA Loss of consciousness s/p dizziness POA Fall, hit the head POA Insomnia PTSD Anxiety Depression History of Traumatic brain injury 2010 History of allergic rhinitis POA History of umbilical hernia repair 2022 History of appendectomy Occasional cigar smoker Vaginal alcohol illicit once per month 1 to 2 beers at a time Time spent arranging discharge: 31-60 minutes ATTESTATION BY PHYSICIAN I have seen and examined the patient. I reviewed the documentation, medical decision making, and treatment plan as noted by the mid-level provider above. I agree with the findings and plan of care. AKILAH BRONSON MD, [facility] Jun 26, 2024 14:22
--- NOTE | 2024-06-26 14:59 | HMCSR ---
APPROVED REPORT EXAM: Two-dimensional and M-mode echocardiogram with Doppler and color Doppler. INDICATION ICD: Dizziness 2D Dimensions RVDd3.8 cmLVEF(%)82.1 (>50%)LVED Vol(simp.)76.0 mL IVSd0.6 (0.7-1.1cm)FS(%)51 %LVES Vol(simp.)29.0 mL LVDd4.9 (3.8-5.6cm)LA (2D)2.9 (1.6-4.0cm)LVEF(%, simp.)62 % PWd1.0 (0.7-1.1cm)Ao Root(2D)2.6 (2.0-3.7cm)LA ESV INDEX (4CH)16.50 mL/m2 IVSs1.3 cmLVOT diam2.2 (1.8-2.4cm)LA ESV INDEX (2CH)17.60 mL/m2 LVDs2.4 (2.5-4.0cm)IVC diam2.1 cmLA ESV INDEX (BP)17.60 mL/m2 PWs1.6 cm M-Mode Dimensions EPSS1.1 cm LA (MM)3.4 (1.6-4.0cm) Ao Root(MM)3.2 (2.0-3.7cm) Aortic Valve AoV VTI0.3 mAo Mean GR4.0 mmHgLVOT VTI0.16 m SNAG (VMAX)2.4 cm2AVA (VTI) 2.4 cm2 Mitral Valve MV E Vmax59.7 cm/sDECEL Jogg464 ms MV A Vmax45.9 cm/sP 1/2 T53 ms E/A ratio1.3MVA (PHT)4.2 cm2 TDI E/E' Medial7.3E/E' Lateral5.1 Medial E' Peak V8.20 cm/sLateral E' Peak V11.80 cm/s Left Ventricle Left ventricular cavity size is normal. Normal wall motion There is normal left ventricular wall thic kness. LVEF is 60-65%. The left ventricular diastolic function is normal. Right Ventricle The right ventricle is normal size. The right ventricular systolic function is normal. Atria The left atrium size is normal. The right atrium size is normal. Aortic Valve The aortic valve is normal in structure and function. No aortic regurgitation is present. There is no aortic valvular stenosis. Mitral Valve Mitral valve leaflets appear normal. There is no mitral valve regurgitation noted. There is no mitral valve stenosis. Tricuspid Valve The tricuspid valve is normal in structure and function. There is no tricuspid valve regurgitation no luca. Pulmonic Valve The pulmonary valve is normal in structure and function. There is no pulmonic valvular regurgitation. Great Vessels The aortic root is normal in size. The IVC is normal in size and collapses >50% with inspiration. Pericardium No pericardial effusion. Other Information Quality : Fair Conclusion LVEF is 60-65%. The left ventricular diastolic function is normal. There is normal left ventricular wall thickness. Left ventricular cavity size is normal. Normal wall motion No effusion Normal pulmonary pressures Study quality was adequate
[2024-06-26 16:18] VITALS: BP 124/76; PULSE 88; RESP 18; TEMP 98.1; O2SAT 98
--- NOTE | 2024-06-26 16:45 | NUR ---
COPIES OF LABS/RADIOLOGY REPORTS PROVIDED TO PT FOR HIS [facility] FOLLOW UP
== END 2024-06-26 16:17 | disposition home or self-care (01) ==
LOC: EDH 10:35 → EDHIP 14:46 → UNDODEPER 06-26 22:26
PROVIDERS: ADMIT Internal Medicine; ATTEND Internal Medicine
DX: S06.9X9A Unspecified intracranial injury with loss of consciousness of unspecified duration, initial encounter (principal); G91.9 Hydrocephalus, unspecified; G47.00 Insomnia, unspecified; F43.10 Post-traumatic stress disorder, unspecified; R55 Syncope and collapse; F41.9 Anxiety disorder, unspecified; F32.A Depression, unspecified; J30.9 Allergic rhinitis, unspecified; R93.0 Abnormal findings on diagnostic imaging of skull and head, not elsewhere classified; F17.290 Nicotine dependence, other tobacco product, uncomplicated; Z79.899 Other long term (current) drug therapy; Z87.820 Personal history of traumatic brain injury; Z90.49 Acquired absence of other specified parts of digestive tract; Z86.2 Personal history of diseases of the blood and blood-forming organs and certain disorders involving the immune mechanism; W19.XXXA Unspecified fall, initial encounter; Y93.01 Activity, walking, marching and hiking; Y92.89 Other specified places as the place of occurrence of the external cause; Y99.8 Other external cause status
CPT/HCPCS: 96374; 96376 ×2; 96372; 96375; 99284; 82550 ×2; 84484; 80048 ×2; 80305; 85025 ×2; 82948; 81003; 36415 ×2; 70450; 93880; 70551; 83036; 80076; 83735; 83880; 82140; 83605 ×2; 93306; 80177; 84145; G0378 ×25; J3490; J1644; J1885 ×3